=== PATIENT | male | born 1965 | race Caucasian/White ===

== ENCOUNTER 2017-03-05 23:43 | Emergency (ER) | payer SELFPAY ==
[~2017-03-05] VITALS: Ht 182.9 cm; Wt 95.3 kg
[2017-03-06 06:23] LABS: Basophils # (auto) 0.1 uL; Basophils % (auto) 0.4 % (0.0-2.0); Eosinophils # (auto) 0.1 uL; Eosinophils % (auto) 1.1 % (0.0-7.0); Hematocrit 46.9 % (41.0-53.0); Hemoglobin 15.8 g/dL (13.5-17.5); Lymphocytes # (auto) 2.7 uL; Lymphocytes % (auto) 19.9 % (10.0-50.0); Mean Corpuscular Hemoglobin 28.8 pg (28.0-32.0); Mean Corpuscular Hgb Conc. 33.6 g/dL (32.0-36.0); Mean Corpuscular Volume 85.8 fL (80.0-100.0); Mean Platelet Volume 8.1 fL (7.4-10.4); Monocytes % (auto) 7.5 % (0.0-12.0); Neutrophils # (auto) 9.6 uL; Neutrophils % (auto) 71.1 % (37.0-80.0); Platelet Count (auto) 404 10^3/uL (140-450); Red Cell Distribution Width 13.7 % (11.6-16.0); White Blood Cell 13.5 10^3/uL (4.4-10.8)
[2017-03-06 06:37] LABS: Albumin 3.8 g/dL (3.4-5.0); BUN/Creatinine Ratio 11.5; Calcium 9.1 mg/dL (8.5-10.1); Potassium 4.2 mmol/L (3.5-5.1)
[2017-03-06 06:39] LABS: Bilirubin, Total 0.8 mg/dL (0.2-1.0); Total Protein 8.5 g/dL (6.4-8.2)
[2017-03-06] MEDS ORDERED: CLINDAMYCIN 600 MG/4 ML VL IM ONE (08:30)
[2017-03-06] MEDS ORDERED: cefTRIAXone W LIDOCAINE 1 GM IM IM ONE (08:30)
[2017-03-06] MEDS ORDERED: CLINDAMYCIN 600MG IV 50 ML IV ONE (09:00)
[2017-03-06] MEDS ORDERED: cefTRIAXone 1GM/50ML D5W 50 ML IV ONE (09:00)
[2017-03-06 09:56] LABS: Urine Bilirubin Negative (Negative); Urine Blood TRACE /uL (Negative); Urine Color Yellow (Yellow); Urine Glucose Normal (Normal); Urine Ketone Negative (Negative); Urine Nitrite Negative (Negative); Urine RBC 2 /hpf (0 - 3); Urine Urobilinogen Normal (Negative)
[2017-03-06 10:00] VITALS: BP 139/88
== END 2017-03-06 11:21 | disposition home or self-care (01) ==
LOC: ER 23:55
DX: L03.116 Cellulitis of left lower limb (principal); F17.210 Nicotine dependence, cigarettes, uncomplicated; F12.10 Cannabis abuse, uncomplicated; F15.10 Other stimulant abuse, uncomplicated
CPT/HCPCS: 36415; 80053; 80307; 81001; 85025; 87205; 96365; 96368; 99284; J0696; J3490

== ENCOUNTER 2017-06-26 06:39 | Inpatient (IN) | payer MEDICAID ==
[~2017-06-26] VITALS: Ht 182.9 cm; Wt 98.2 kg
[2017-06-26] MEDS ORDERED: SODIUM CHLORIDE 0.9% 1,000 ML IV ONE (07:08)
[2017-06-26] MEDS ORDERED: CLINDAMYCIN 600MG IV 50 ML IV ONE (07:15)
[2017-06-26 07:19] LABS: Basophils # (auto) 0.1 uL; Basophils % (auto) 0.8 % (0.0-2.0); CONDITION Y; Eosinophils # (auto) 0.3 uL; Eosinophils % (auto) 3.1 % (0.0-7.0); Hematocrit 43.2 % (41.0-53.0); Hemoglobin 14.6 g/dL (13.5-17.5); Lymphocytes % (auto) 29.5 % (10.0-50.0); Mean Corpuscular Hemoglobin 29.2 pg (28.0-32.0); Mean Corpuscular Hgb Conc. 33.8 g/dL (32.0-36.0); Mean Corpuscular Volume 86.3 fL (80.0-100.0); Mean Platelet Volume 7.9 fL (7.4-10.4); Monocytes # (auto) 0.7 uL; Monocytes % (auto) 7.2 % (0.0-12.0); Neutrophils # (auto) 6.1 uL; Neutrophils % (auto) 59.4 % (37.0-80.0); Platelet Count (auto) 437 10^3/uL (140-450); Red Cell Distribution Width 13.9 % (11.6-16.0); White Blood Cell 10.3 10^3/uL (4.4-10.8)
[2017-06-26 07:37] LABS: Albumin 3.2 g/dL (3.4-5.0); BUN/Creatinine Ratio 11.2; Calcium 8.6 mg/dL (8.5-10.1); Potassium 3.9 mmol/L (3.5-5.1)
[2017-06-26 07:40] LABS: Bilirubin, Total 0.4 mg/dL (0.2-1.0); Total Protein 8.2 g/dL (6.4-8.2)
[2017-06-26] MEDS ORDERED: MORPHINE SULFATE 4 MG/ML SYRG IV PRN (09:00)
[2017-06-26] MEDS ORDERED: LORazepam 0.5 MG TAB PO PRN (09:00)
[2017-06-26] MEDS ORDERED: ACETAMINOPHEN 500 MG TAB PO PRN (09:00)
[2017-06-26] MEDS ORDERED: MORPHINE SULF INJ 2 MG/ML SYRINGE 1ML IV PRN (09:00)
[2017-06-26] MEDS ORDERED: PROMETHAZINE HCL 25 MG/ML 1ML IV PRN (09:00)
[2017-06-26] MEDS ORDERED: NITROGLYCERIN 0.4 MG SL TAB SL PRN (09:00)
[2017-06-26] MEDS ORDERED: TEMAZEPAM 15 MG CAP PO PRN (09:00)
[2017-06-26] MEDS ORDERED: LACTULOSE 20Gm/30ML SOLN PO PRN (09:00)
[2017-06-26] MEDS ORDERED: HYDROcodone-ACET 5/325MG TAB PO PRN (09:00)
[2017-06-26 09:42] LABS: Urine RBC None Seen /hpf (0 - 3)
[2017-06-26] MEDS: cefTRIAXone 1GM/50ML D5W 50 ML IV SCH (09:47)
[2017-06-26] MEDS: SODIUM CHLORIDE 0.9% 1,000 ML IV SCH ×2 (09:47→17:08)
[2017-06-26 09:49] LABS: Urine Bilirubin Negative (Negative); Urine Blood Negative /uL (Negative); Urine Color Colorless (Yellow); Urine Glucose Normal (Normal); Urine Ketone Negative (Negative); Urine Nitrite Negative (Negative); Urine Urobilinogen Normal (Negative)
[2017-06-26] MEDS: ENOXAPARIN SOD 40 MG/0.4 ML SYRINGE SC SCH (10:00)
[2017-06-26] MEDS: PANTOPRAZOLE 40 MG TAB PO SCH (10:00)
[2017-06-26 13:30] VITALS: BP 131/101
[2017-06-26] MEDS: CLINDAMYCIN 600MG IV 50 ML IV SCH ×2 (14:19→21:41)
[2017-06-26 17:28] VITALS: BP 112/69
[2017-06-26 21:30] VITALS: BP 102/51
[2017-06-27] MEDS: SODIUM CHLORIDE 0.9% 1,000 ML IV SCH (04:49)
[2017-06-27 04:59] VITALS: BP 114/62
[2017-06-27] MEDS: CLINDAMYCIN 600MG IV 50 ML IV SCH (05:53)
[2017-06-27 06:16] LABS: Cholesterol 142 mg/dL (< 200); HDL Cholesterol 29 mg/dL (40-59); LDL Cholesterol 92 mg/dL (< 100); Triglycerides 235 mg/dL (< 150)
[2017-06-27 08:34] VITALS: BP 97/64
[2017-06-27] MEDS: ENOXAPARIN SOD 40 MG/0.4 ML SYRINGE SC SCH (10:00)
[2017-06-27] MEDS: PANTOPRAZOLE 40 MG TAB PO SCH (10:00)
[2017-06-27] MEDS: cefTRIAXone 1GM/50ML D5W 50 ML IV SCH (10:15)
[2017-06-27 12:41] VITALS: BP 100/58
[2017-06-27 17:00] VITALS: BP 100/58
[2017-06-27 17:27] VITALS: BP 106/68
== END 2017-06-27 19:41 | disposition home or self-care (01) | DRG 383 ==
LOC: ER 06:39 → TELE 06:40 → TELE-E-ADS 10:40 → TELE-WESTW 11:00
PROVIDERS: ADMIT Internal Medicine; ATTEND Internal Medicine
DX: L03.116 Cellulitis of left lower limb (principal); F41.9 Anxiety disorder, unspecified; S90.522A Blister (nonthermal), left ankle, initial encounter; F17.210 Nicotine dependence, cigarettes, uncomplicated; F15.90 Other stimulant use, unspecified, uncomplicated; K59.00 Constipation, unspecified; G47.00 Insomnia, unspecified; X58.XXXA Exposure to other specified factors, initial encounter; Y93.89 Activity, other specified; Z59.0 Homelessness; Y92.89 Other specified places as the place of occurrence of the external cause; Y99.8 Other external cause status
CPT/HCPCS: 36415; 71010; 73590; 73600; 80053; 80061; 80307; 81001; 83605; 85025; 85379; 85652; 87040; 93970; 94761; 96365; J0696; J3490